=== PATIENT | male | born 1985 | race African-American/Black ===

== ENCOUNTER 2021-03-16 07:13 | Inpatient (IN) ==
[2021-03-16] MEDS ORDERED: SODIUM CHLORIDE 0.9% 2,000 ML IV STA (08:31)
[2021-03-16] MEDS ORDERED: ONDANSETRON 4 MG/2 ML VIAL IV STA (08:31)
[2021-03-16] MEDS ORDERED: KETOROLAC 30 MG/1 ML VIAL ONE (08:50)
[2021-03-16] MEDS ORDERED: KETOROLAC 30 MG/1 ML VIAL IV STA (08:58)
[2021-03-16] MEDS ORDERED: DILTIAZEM 50 MG/10 ML VIAL IV STA (09:00)
[2021-03-16] MEDS: DILTIAZEM INJ 100 MG in SODIUM CHLORIDE 0.9% 100 ML IV SCH ×2 (09:12→20:23)
[2021-03-16 09:22] LABS: Basophils % 0.3 % (0.0-0.8); Immature Granulocytes % 0.9 %; Immature Granulocytes Absolute 0.06 #; White Blood Count 6.9 T/CUMM (4-12)
[2021-03-16 09:37] LABS: Albumin 2.7 G/DL (3.4-5.0); Bilirubin,Total 1.2 MG/DL (0.2-1.0); Calcium 7.9 MG/DL (8.5-10.1); Osmolality,Calculated 247.9 MOS/KG (273-304); Potassium 2.9 MMOL/L (3.5-5.1)
[2021-03-16 09:48] LABS: Amorphous Crystals,Urine Occasional /HPF (Few); Bilirubin,Urine Negative (Negative); Blood, Urine Moderate mg/dL (Negative); Glucose,Urine (UA) Negative (Negative); Ketones,Urine Negative (Negative); Mucus,Urine Occasional /LPF (Occasional); Nitrite,Urine Negative (Negative); Protein,Urine 100 MG/DL; RBC,Urine 1 /HPF (0-4); Urine Appearance Slightly Hazy (Clear); Urine Color Yellow (Yellow); Urine Specific Gravity 1.014 (1.001-1.035); Urine Urobilinogen < 2.0 EU/DL (0.2-1.0)
[2021-03-16] MEDS ORDERED: POTASSIUM CHLORIDE 20 MEQ TABLET PO STA (10:02)
[2021-03-16 10:11] LABS: Hematocrit 36.1 VOL% (42.0-52.0); Hemoglobin 13.2 GM/DL (14.0-18.0); Lymphocytes # 1.4 10*3/uL (1.4-4.0); Mean Corpuscular HGB Conc 36.6 GM/DL (32-36); Mean Corpuscular Volume 80.4 FL (87-102); Mean Platelet Volume 12.6 FL (9.6-12.0); Monocytes % 2.9 % (1.7-12.7); Neutrophils % 74.9 % (38.7-73.9); Red Blood Count 4.49 MC/CUMM (3.8-5.5)
[2021-03-16 10:14] LABS: Platelet Count 60 T/CUMM (130-400)
[2021-03-16 10:32] LABS: Band Neutrophils 3 % (0-10); Lymphocytes 14 % (20-55); Platelet Estimate Decreased; Segmented Neutrophils 79 % (50-85); Total Cells Counted 100
[2021-03-16 10:33] LABS: Atypical Lymphocytes Few
[2021-03-16] MEDS ORDERED: GLUCAGON 1 MG VIAL IM PRN (10:36)
[2021-03-16] MEDS ORDERED: ONDANSETRON 4 MG/2 ML VIAL IV PRN (10:36)
[2021-03-16] MEDS ORDERED: DEXTROSE 50% 25 GM/50 ML VIAL IV PRN (10:36)
[2021-03-16] MEDS ORDERED: ENOXAPARIN 40 MG/0.4 ML SYRINGE SUBCUT SCH (11:00)
[2021-03-16 11:04] LABS: Barbiturates Screen,Urine Negative (Negative); Benzodiazepines Screen,Urine Negative (Negative); Cannabinoid Screen,Urine Negative (Negative); Opiate Screen,Urine Negative (Negative); Phencyclidine Screen,Urine Negative (Negative)
[2021-03-16] MEDS: DEXT 5% NACL 0.9% KCL 20 MEQ 20 MEQ/1,000 ML BAG IV SCH ×2 (13:27→21:32)
[2021-03-16] MEDS: ACETAMINOPHEN 325 MG TABLET PO PRN (16:00)
[2021-03-16] MEDS: cefTRIAXone 2,000 MG in SODIUM CHLORIDE 0.9% 100 ML IV SCH (17:29)
[2021-03-17 05:04] LABS: Basophils % 0.4 % (0.0-0.8); Hematocrit 33.4 VOL% (42.0-52.0); Hemoglobin 11.9 GM/DL (14.0-18.0); Immature Granulocytes % 0.9 %; Immature Granulocytes Absolute 0.04 #; Lymphocytes % 43.9 % (21.2-54.2); Mean Corpuscular HGB Conc 35.6 GM/DL (32-36); Mean Corpuscular Volume 81.5 FL (87-102); Mean Platelet Volume 12.3 FL (9.6-12.0); Monocytes % 2.9 % (1.7-12.7); Neutrophils % 51.9 % (38.7-73.9); Platelet Count 56 T/CUMM (130-400); Red Cell Distribution Width 14.3 % (9.3-17.3); White Blood Count 4.5 T/CUMM (4-12)
[2021-03-17 05:09] LABS: INR 1.2; PT Patient Result 13.1 SECS (10.5-12.0)
[2021-03-17 05:24] LABS: Calcium 7.4 MG/DL (8.5-10.1); Osmolality,Calculated 259.1 MOS/KG (273-304); Potassium 3.2 MMOL/L (3.5-5.1)
[2021-03-17 05:29] LABS: Lymphocytes 32 % (20-55); Platelet Estimate Decreased; Segmented Neutrophils 61 % (50-85); Total Cells Counted 100
[2021-03-17 05:30] LABS: Atypical Lymphocytes Few; Hypochromasia Slight; Microcytosis Slight
[2021-03-17 05:31] LABS: Albumin 2.4 G/DL (3.4-5.0); Bilirubin,Direct 0.39 MG/DL (0.0-0.20); Bilirubin,Indirect 0.8 MG/DL (0.0-1.0); Bilirubin,Total 1.2 MG/DL (0.2-1.0); Total Protein 6.2 G/DL (6.4-8.2)
[2021-03-17 06:06] LABS: HIV Antigen/Antibody Result Nonreactive (Nonreactive); Hepatitis B Core IgM Quant < 0.05 Index; Hepatitis B Surface Ag Quant < 0.10 Index; Hepatitis B Surface Ag Result Non-Reactive (NonReactive); Hepatitis C Virus Ab Quant 0.32 Index; Hepatitis C Virus Ab Result Non-Reactive (NonReactive)
[2021-03-17 07:24] LABS: Hematocrit 32.8 VOL% (42.0-52.0); Hemoglobin 11.9 GM/DL (14.0-18.0)
[2021-03-17] MEDS ORDERED: POTASSIUM CHLORIDE 20 MEQ TABLET PO PRN (07:28)
[2021-03-17] MEDS: DEXT 5% NACL 0.9% KCL 20 MEQ 20 MEQ/1,000 ML BAG IV SCH ×2 (08:27→20:00)
[2021-03-17] MEDS ORDERED: POTASSIUM CHLORIDE 20 MEQ/15 ML UDCUP PO ONE (08:28)
[2021-03-17 08:46] LABS: Calcium 7.1 MG/DL (8.5-10.1); Osmolality,Calculated 258.1 MOS/KG (273-304); Potassium 3.3 MMOL/L (3.5-5.1)
[2021-03-17] MEDS: DILTIAZEM INJ 100 MG in SODIUM CHLORIDE 0.9% 100 ML IV SCH (09:21)
[2021-03-17] MEDS: ACETAMINOPHEN 325 MG TABLET PO PRN ×2 (12:10→17:23)
[2021-03-17] MEDS: PANTOPRAZOLE 40 MG VIAL IV SCH (17:22)
[2021-03-17] MEDS: cefTRIAXone 2,000 MG in SODIUM CHLORIDE 0.9% 100 ML IV SCH (17:23)
[2021-03-17] MEDS: carvediloL 3.125 MG TABLET PO SCH (22:42)
[2021-03-17] MEDS: VANCOMYCIN INJ 1,000 MG in SODIUM CHLORIDE 0.9% 250 ML IV SCH (22:44)
[2021-03-18] MEDS: DEXT 5% NACL 0.9% KCL 20 MEQ 20 MEQ/1,000 ML BAG IV SCH ×4 (00:55→17:52)
[2021-03-18] MEDS: ACETAMINOPHEN 325 MG TABLET PO PRN (01:13)
[2021-03-18 05:15] LABS: Basophils % 0.7 % (0.0-0.8); Hematocrit 30.1 VOL% (42.0-52.0); Hemoglobin 10.8 GM/DL (14.0-18.0); Immature Granulocytes % 1.1 %; Immature Granulocytes Absolute 0.05 #; Lymphocytes % 46.3 % (21.2-54.2); Mean Corpuscular HGB Conc 35.9 GM/DL (32-36); Mean Corpuscular Volume 81.4 FL (87-102); Monocytes % 6.6 % (1.7-12.7); Neutrophils % 45.3 % (38.7-73.9); Platelet Count 58 T/CUMM (130-400); Red Cell Distribution Width 14.4 % (9.3-17.3); White Blood Count 4.4 T/CUMM (4-12)
[2021-03-18 05:34] LABS: Calcium 7.1 MG/DL (8.5-10.1); Osmolality,Calculated 265.5 MOS/KG (273-304); Potassium 3.2 MMOL/L (3.5-5.1)
[2021-03-18 05:37] LABS: Albumin 2.2 G/DL (3.4-5.0); Bilirubin,Direct 0.38 MG/DL (0.0-0.20); Bilirubin,Indirect 0.4 MG/DL (0.0-1.0); Bilirubin,Total 0.8 MG/DL (0.2-1.0); Total Protein 5.3 G/DL (6.4-8.2)
[2021-03-18 05:38] LABS: Atypical Lymphocytes Few; Hypochromasia Slight; Lymphocytes 33 % (20-55); Microcytosis Slight; Platelet Estimate Decreased; Segmented Neutrophils 59 % (50-85); Total Cells Counted 100
[2021-03-18] MEDS ORDERED: POTASSIUM CHLORIDE 20 MEQ/15 ML UDCUP PO ONE (08:06)
[2021-03-18] MEDS: carvediloL 3.125 MG TABLET PO SCH (09:00)
[2021-03-18] MEDS: VANCOMYCIN INJ 1,000 MG in SODIUM CHLORIDE 0.9% 250 ML IV SCH (09:01)
[2021-03-18] MEDS: PANTOPRAZOLE 40 MG VIAL IV SCH (09:01)
[2021-03-18] MEDS: DILTIAZEM INJ 100 MG in SODIUM CHLORIDE 0.9% 100 ML IV SCH (09:02)
[2021-03-18] MEDS ORDERED: cefTRIAXone 2,000 MG in SODIUM CHLORIDE 0.9% 100 ML IV SCH (11:00)
[2021-03-18] MEDS: VANCOMYCIN 50 MG/ML 60 ML/BOTTLE PO SCH ×2 (11:34→18:19)
[2021-03-18 15:36] VITALS: BP 100/52
[2021-03-18] MEDS ORDERED: CHOLESTYRAMINE 4 GM PACK PO SCH (22:00)
[2021-03-19 15:21] LABS: IgG Detected Against p66 kDa (No Bands); IgG Immunoblot Negative (Negative); IgM Detected Against p41 kDa (No Bands); IgM Immunoblot Negative (Negative)
== END 2021-03-18 19:35 | disposition hospice, home (50) | DRG 864 ==
LOC: N.ED 07:13 → N.EDINP 07:13 → SUATTDRO 10:19 → N.TELES 15:15
PROVIDERS: ADMIT Hospitalist; ATTEND Internal Medicine